=== PATIENT | male | born 1955 | race Caucasian/White ===

== ENCOUNTER → 2023-03-01 23:59 | Outpatient (BNV) | payer OTHER, SELFPAY | PROVIDERS: Visit Provider Internal Medicine Cardiovascular Disease | DX: I21.02 ST elevation (STEMI) myocardial infarction involving left anterior descending coronary artery (principal) | CPT/HCPCS: 92941; 92978; 93458; 99152 ==

== ENCOUNTER 2023-03-20 14:45 | Outpatient (AMB) | payer OTHER, SELFPAY ==
--- NOTE | 2023-03-20 14:48 | A.OFFVIS_ITS ---
Intake Vital Signs 03/20/23 14:51 Height 5 ft 10 in Weight 209 lb 10.554 oz BMI 30.1 BP 110/60 Blood Pressure Location Lt brachial Position Sitting Pulse 62 Intake Visit Reasons: fu cardiac cath Intake Note: f/up cardiac cath pt it fine Clinical Applications Specialist Required: No Accompanied by: Spouse Allergies No Known Allergies Allergy (Verified 03/20/23 14:53) Medication List - Last Reconciled 03/20/23 by Rocky Mckinnon MD aspirin 81 mg PO DAILY atorvastatin 80 mg PO BEDTIME clopidogrel 75 mg PO DAILY metoprolol succinate ER 25 mg PO DAILY sildenafil mg PO valsartan 40 mg PO DAILY HPI HPI Comments History of Present Illness Details [age] gentleman is here for follow-up. He presented to [facility] with anterior ST-elevation UT in February 2023. Was taken emergently for cardiac catheterization which revealed a 99% proximal LAD stenosis which was treated with drug-eluting stent. He did well after that. Reportedly he had ejection fraction of 30 35%. Was started on valsartan and metoprolol succinate. He is complaining of some fatigue and gets tired easily. He was not very active to start with and has not been exercising regularly since the UT. He is due to start cardiac rehabilitation in April 2023. He is taking aspirin and Plavix without any bleeding issues. Blood pressure is 110/60. On couple of occasions he had dizziness but this is not a common symptom. He said he has not been drinking much because he was advised not to drink a lot of water since his ejection fraction is low. I have advised him to drink water but stay away from salt. [facility] Social History Alcohol intake: never Patient Tobacco Use Status: Never used Tobacco Review of Systems Const Reports chills, Reports fatigue, Reports fever(s), Reports frequent falls, Reports weakness, Reports weight gain and Reports weight loss ENT Reports dizziness Card Reports chest pain, Reports leg edema, Reports lightheadedness, Reports palpitations, Reports dyspnea and Reports dyspnea on exertion Resp Reports cough, Reports dyspnea and Reports dyspnea on exertion GI Reports hematochezia Musc Reports abnormal gait, Reports muscle weakness, Reports numbness, Reports radiating pain into limb and Reports tingling Neuro Reports abnormal gait, Reports dizziness, Reports frequent falls, Reports numbness, Reports tingling and Reports weakness Endo Reports fatigue and Reports palpitations Physical Exam Vital Signs: Last Vital Signs Pulse 62 03/20/23 14:51 BP 110/60 03/20/23 14:51 BMI result Body Mass Index 30.1 GENERAL APPEARANCE: in no acute distress, pleasant. NECK: no carotid bruit, no jugular venous distention. SKIN: no suspicious lesions, warm and dry. HEART: no murmurs, regular rate and rhythm. LUNGS: clear to auscultation bilaterally. ABDOMEN: soft, nontender. EXTREMITIES: no edema. PERIPHERAL PULSES: equal. NEUROLOGIC: No gross deficits, AAO X 3 Office Procedures EKG Details: Sinus rhythm 62 beats per minute, normal axis, septal infarct, QTC 428 milliseconds. [id number], Complete Assessment & Plan Assessment & Plan (1) STEMI (ST elevation myocardial infarction): Code(s): I21.3 - ST elevation (STEMI) myocardial infarction of unspecified site (2) Ischemic cardiomyopathy: Code(s): I25.5 - Ischemic cardiomyopathy Plan Pleasant 68 gentleman who is here for follow-up. He underwent LAD PCI in February 2023 when he presented with anterior wall UT. He had ejection fraction of 30%. Clinically not in heart failure. Tolerating medications well. I have advised him to start exercising on his own and started cardiac rehabilitation in April. Same medications for now and no changes required. We will do repeat echocardiogram in 2 months to reassess the ejection fraction. Thank you for allowing me to participate in the care of your patient. Please feel free to contact me if you have any questions. Orders: Orders CA echo limited Today I25.5 - Ischemic cardiomyopathy Coding Level of Care Code Est Pt Level 4 (73804) Diagnoses STEMI (ST elevation myocardial infarction) I21.3 Ischemic cardiomyopathy I25.5 CPT Codes EKG - CPT: 19352-[id number], Complete ([id number])
[2023-03-20 14:51] VITALS: BP 110/60; PULSE 62; BMI 30.1
== END 2023-03-20 15:34 | disposition home or self-care (01) ==
PROVIDERS: Visit Provider Internal Medicine Cardiovascular Disease
DX: I21.3 ST elevation (STEMI) myocardial infarction of unspecified site (principal); I25.5 Ischemic cardiomyopathy
CPT/HCPCS: 93010; 99214

== ENCOUNTER → 2023-03-20 14:45 | Outpatient (BNVA) | payer OTHER, SELFPAY | PROVIDERS: Visit Provider Internal Medicine Cardiovascular Disease | DX: I21.3 ST elevation (STEMI) myocardial infarction of unspecified site (principal); I25.5 Ischemic cardiomyopathy; Z79.02 Long term (current) use of antithrombotics/antiplatelets; Z79.82 Long term (current) use of aspirin | CPT/HCPCS: 93005 ==

== ENCOUNTER → 2023-04-23 12:41 | Outpatient (REF) | payer MEDICARE, SELFPAY ==
--- NOTE | 2023-04-23 12:47 | CA_ITS ---
Transthoracic Echocardiogram Patient (Last, First, Middle): Aureliano Lindsey T Gender: Male Date of : 1955 Age: 68 Procedure Date: 04/23/2023 Procedure Type: Transthoracic Echocardiogram Location: OP Height: 177.8 cm Weight: 95.71 kg BSA: 2.14 m2 Heart Rate: bpm BP: 110 / 60 mmHg Pricing Associate: TO Referring MD: Rocky Mckinnon MD Filter Operator: Rocky Mckinnon MD Symptoms: I25.5 - Ischemic cardiomyopathy Study Quality: Fair/Contrast Conclusions: - Normal left ventricular size, thickness, systolic function, and wall motion. The visually estimated ejection fraction is between 55-60%. - Normal right ventricular cavity size and systolic function. Findings Procedure Information Contrast agent, definity, is being given per protocol without apparent complications. Left Ventricle Normal left ventricular size, thickness, systolic function, and wall motion. The visually estimated ejection fraction is between 55-60%. Diastolic function is indeterminate on the basis of available data. Right Ventricle Normal right ventricular cavity size and systolic function. Venous The inferior vena cava is normal in size and collapses greater than 50% with inspiration. Pericardium/Pleural There is no evidence of pericardial effusion. Prior Study Comparison No prior study available for comparison. Measurements 2D Linear Measurements IVSd: 1.09 0.6-0.9/0.6-1.0 cm LVIDd: 5.00 3.9-5.3/4.2-5.9 cm LVIDd Index: 2.34 2.4-3.2/2.2-3.1 cm/m2 LVIDs: 2.54 2.0-3.6 cm LVPWd: 0.79 0.7-1.1 cm LV Mass: 208.98 67-162/88-224 g LV Mass Index: 97.66 43-95/49-115 g/m2 LVOT Diam: 2.10 3.0+(-)1.3 cm 2D Systolic Function EF 4C: 53.20 >55% EF 2C: 49.70 >55% EF BiP: 50.90 >55% LVOT LVOT Pk Dayne: 0.88 LVOT Mn Dayne: 0.57 LVOT VTI: 0.19 LVOT Pk Grad: 3.00 LVOT Mn Grad: 2.00 LVOT Diam: 2.10 LVOT Area: 3.46 Tricuspid Valve RA Press: 8.00 Updated in Other Vendor System with Status of Final Rocky Mckinnon MD electronically signed on 04/24/2023 2:46:09 PM with status of Final
== END ==
LOC: HO.CARD 12:41
PROVIDERS: PCP Pediatrics; Visit Provider Internal Medicine Cardiovascular Disease
DX: I25.5 Ischemic cardiomyopathy (principal)
CPT/HCPCS: 93308; Q9957

== ENCOUNTER → 2023-04-23 12:47 | Outpatient (BNV) | payer SELFPAY | PROVIDERS: PCP Pediatrics; Visit Provider Internal Medicine Cardiovascular Disease | DX: I25.5 Ischemic cardiomyopathy (principal) | CPT/HCPCS: 93308 ==

== ENCOUNTER 2023-06-26 14:34 | Outpatient (AMB) | payer MEDICARE, OTHER, SELFPAY ==
[2023-06-26 14:55] VITALS: BP 120/60; PULSE 61; BMI 30.5
--- NOTE | 2023-06-26 14:55 | A.OFFVIS_ITS ---
Intake Vital Signs 06/26/23 14:55 Height 5 ft 10 in Weight 212 lb 8.41 oz BMI 30.5 BP 120/60 Blood Pressure Location Lt brachial Position Sitting Pulse 61 Pulse Source Pulse Oximeter Intake Visit Reasons: 3 mth s/p echo Intake Note: pt states that he its doing fine. 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 He presented to [facility] with anterior ST-elevation MO in February 2023. Was taken emergently for cardiac catheterization which revealed a 99% proximal LAD stenosis which was treated with drug-eluting stent. He did well after that. Reportedly he had ejection fraction of 30 35%. Was started on valsartan and metoprolol succinate. He is complaining of some fatigue and gets tired easily. He was not very active to start with and has not been exercising regularly since the MO. He is due to start cardiac rehabilitation in April 2023. He is taking aspirin and Plavix without any bleeding issues. Blood pressure is 110/60. On couple of occasions he had dizziness but this is not a common symptom. He said he has not been drinking much because he was advised not to drink a lot of water since his ejection fraction is low. I have advised him to drink water but stay away from salt. 06/26/2023: He returns for follow-up. Nathaly davenport has been doing well. No chest pain or shortness of breath. Blood pressure is well controlled. He is tolerating dual antiplatelet therapy. Is asking whether he can take creatine supplements. To my knowledge there is no absolute contraindication to that but I will search about it. His repeat echocardiography has shown normal EF and his cardiomyopathy has improved. [facility] Social History Alcohol intake: never Patient Tobacco Use Status: Never used Tobacco Review of Systems Const Denies chills, Denies fatigue, Denies fever(s), Denies frequent falls, Denies weakness, Denies weight gain and Denies weight loss ENT Denies dizziness Card Denies chest pain, Denies leg edema, Denies lightheadedness, Denies palpitations, Denies dyspnea and Denies dyspnea on exertion Resp Denies cough, Denies dyspnea and Denies dyspnea on exertion GI Denies hematochezia Musc Denies abnormal gait, Denies muscle weakness, Denies numbness, Denies radiating pain into limb and Denies tingling Neuro Denies abnormal gait, Denies dizziness, Denies frequent falls, Denies numbness, Denies tingling and Denies weakness Endo Denies fatigue and Denies palpitations Physical Exam Vital Signs: Last Vital Signs Pulse 61 06/26/23 14:55 BP 120/60 06/26/23 14:55 BMI result Body Mass Index 30.5 GENERAL APPEARANCE: in no acute distress, pleasant. NECK: no carotid bruit, no jugular venous distention. SKIN: no suspicious lesions, warm and dry. HEART: no murmurs, regular rate and rhythm. LUNGS: clear to auscultation bilaterally. ABDOMEN: soft, nontender. EXTREMITIES: no edema. PERIPHERAL PULSES: equal. NEUROLOGIC: No gross deficits, AAO X 3 Assessment & Plan Assessment & Plan (1) Stable angina: Code(s): I20.89 - Other forms of angina pectoris Plan Pleasant 68-year-old gentleman who is here for follow-up. He has background history of anterior wall MO in February 2023 when he underwent primary PCI to LAD. His EF was 30% at that time. Subsequent to that he was seen in the office and was stable. On medications repeat echocardiography has shown normal ejection fraction. Clinically stable. Continue aspirin Plavix till February 2024. After that I would favor continuing Plavix monotherapy and will stop the aspirin but we will have a discussion about it. He will see us back in 4 months. Thank you for allowing me to participate in the care of your patient. Please feel free to contact me if you have any questions. Coding Level of Care Code Est Pt Level 4 (86816) Diagnoses Stable angina I20.89
== END 2023-06-26 15:20 | disposition home or self-care (01) ==
PROVIDERS: Visit Provider Internal Medicine Cardiovascular Disease
DX: I20.89 Other forms of angina pectoris (principal)
CPT/HCPCS: 99214

== ENCOUNTER → 2023-06-26 14:34 | Outpatient (BNVA) | payer MEDICARE, OTHER, SELFPAY | PROVIDERS: Visit Provider Internal Medicine Cardiovascular Disease | DX: I20.89 Other forms of angina pectoris (principal) | CPT/HCPCS: 99212 ==

== ENCOUNTER 2023-11-13 12:50 | Outpatient (AMB) | payer MEDICARE, SELFPAY ==
--- NOTE | 2023-11-13 12:52 | A.OFFVIS_ITS ---
Vital Signs 11/13/23 12:53 Height 5 ft 10 in Weight 219 lb 9.286 oz BMI 31.5 BP 130/64 Blood Pressure Location Lt brachial Position Sitting Pulse 83 Pulse Source Pulse Oximeter Intake Visit Reasons: 4 mth f/up Intake Note: 4 mth f/up pt Gold Assayer Required: No Accompanied by: Self / Same As Patient Allergies No Known Allergies Allergy (Verified 03/20/23 14:53) Medication List - Last Reconciled 11/13/23 by Rocky Mckinnon MD aspirin 81 mg PO DAILY atorvastatin 80 mg PO BEDTIME clopidogrel 75 mg PO DAILY metoprolol succinate ER 25 mg PO DAILY sildenafil mg PO valsartan 40 mg PO DAILY HPI Comments Details: 68-shey-old gentleman is here for follow-up. He presented to [facility] with anterior ST-elevation CT in February 2023. Was taken emergently for cardiac catheterization which revealed a 99% proximal LAD stenosis which was treated with drug-eluting stent. He did well after that. Reportedly he had ejection fraction of 30 35%. Was started on valsartan and metoprolol succinate. He is complaining of some fatigue and gets tired easily. He was not very activ e to start with and has not been exercising regularly since the CT. He is due to start cardiac rehabilitation in April 2023. He is taking aspirin and Plavix without any bleeding issues. Blood pressure is 110/60. On couple of occasions he had dizziness but this is not a common symptom. He said he has not been drinking much because he was advised not to drink a lot of water since his ejection fraction is low. I have advised him to drink water but stay away from salt. 06/26/2023: He returns for follow-up. He has been doing well. No chest pain or shortness of breath. Blood pressure is well controlled. He is tolerating dual antiplatelet therapy. Is asking whether he can take creatine supplements. To my knowledge there is no absolute contraindication to that but I will search about it. His repeat echocardiography has shown normal EF and his cardiomyopathy has improved. 11/13/2023: Aureliano is here for follow-up. No chest pain or shortness of breath. He is saying occasionally he gets very jittery and tremulous. Today he has been tremulous since he ate breakfast. He said he was holding the spoon and it was shaking in his hand. He has some stress because he is trying to sell some tool boxes because his garage is full of tools. Taking medications regularly otherwise. Blood pressure is well controlled. [facility] Social History (Reviewed 11/13/23 @ 12:55 by Vita Holland [facility]) Alcohol intake: never Patient Tobacco Use Status: Never used Tobacco Review of Systems Const Denies chills, Denies fatigue, Denies fever(s), Denies frequent falls, Denies weakness, Denies weight gain and Denies weight loss ENT Denies dizziness Card Denies chest pain, Denies leg edema, Denies lightheadedness, Denies palpitations, Denies dyspnea and Denies dyspnea on exertion Resp Denies cough, Denies dyspnea and Denies dyspnea on exertion GI Denies hematochezia Musc Denies abnormal gait, Denies muscle weakness, Denies numbness, Denies radiating pain into limb and Denies tingling Neuro Denies abnormal gait, Denies dizziness, Denies frequent falls, Denies numbness, Denies tingling and Denies weakness Endo Denies fatigue and Denies palpitations Physical Exam Vital Signs: Last Vital Signs Pulse 83 11/13/23 12:53 BP 130/64 11/13/23 12:53 BMI result Body Mass Index 31.5 GENERAL APPEARANCE: in no acute distress, pleasant. NECK: no carotid bruit, no jugular venous distention. SKIN: no suspicious lesions, warm and dry. HEART: no murmurs, regular rate and rhythm. LUNGS: clear to auscultation bilaterally. ABDOMEN: soft, nontender. EXTREMITIES: no edema. Tremors in hands. PERIPHERAL PULSES: equal. NEUROLOGIC: No gross deficits, AAO X 3 Assessment & Plan Assessment & Plan (1) Stable angina: Code(s): I20.89 - Other forms of angina pectoris Category: Medical Plan Pleasant 68 year gentleman who is here for follow-up. He has known history of coronary disease with proximal LAD PCI in the past with intravascular ultrasound guidance. His ejection fraction was 30% but subsequently repeat echocardiography has shown normal ejection fraction. He is taking aspirin and Plavix and is tolerating them well. No bleeding concerns. Blood pressure well controlled. He has tremors in his hands. I have advised him to check TSH. Unclear etiology currently to me. Thank you for allowing me to participate in the care of your patient. Please fe el free to contact me if you have any questions. Orders: Orders TSH reflex Free T4 Today I20.89 - Other forms of angina pectoris Coding Level of Care Code Est Pt Level 4 (29551) Diagnoses Stable angina I20.89
[2023-11-13 12:53] VITALS: BP 130/64; PULSE 83; BMI 31.5
== END 2023-11-13 13:26 | disposition home or self-care (01) ==
PROVIDERS: PCP Pediatrics; Visit Provider Internal Medicine Cardiovascular Disease
DX: I20.89 Other forms of angina pectoris (principal)
CPT/HCPCS: 99214

== ENCOUNTER 2023-11-13 12:50 | Outpatient (REF) | payer MEDICARE, SELFPAY ==
[2023-11-13 14:41] LABS: TSH reflex Free T4 1.96 uIU/mL (0.32-4.0)
== END 2023-11-13 12:51 | disposition home or self-care (01) ==
LOC: HO.LAB 12:50
PROVIDERS: PCP Pediatrics; Visit Provider Internal Medicine Cardiovascular Disease
DX: I20.89 Other forms of angina pectoris (principal); Z79.899 Other long term (current) drug therapy
CPT/HCPCS: 36415; 84443; 99212

== ENCOUNTER 2024-08-17 14:21 | Outpatient (AMB) | payer MEDICARE, SELFPAY ==
--- OUTSIDE RECORDS SUMMARY | 2024-08-17 14:34 | XMS_ITS | Clinical Summary ---
Author Organization [facility] Address [address] [place] [address] Care Team Providers Care Cloth Winding Supervisor Name Role Phone [place]-Sary Ross MD Primary Care Provider Allergies No known active allergies Medications Medication Sig Dispensed Refills Start Date End Date Status naproxen (NAPROXEN DR) 500 MG EC tablet Take 500 mg by mouth 2 (two) times a day with meals. 0 Active Active Problems Problem Noted Date Diagnosed Date Acute meniscal tear of knee, left, initial encou nter 01/15/2017 Chronic pain of left knee 01/09/2017 Family History Medical History Relation Name Comments Hypertension Father Diabetes Mother Relation Name Status Comments Father Mother Social History Tobacco Use Types Packs/Day Years Used Date Smoking Tobacco: Never Alcohol Use Standard Drinks/Week Comments Yes 0 (1 standard drink = 0.6 oz pur e alcohol) Sex and Gender Information Value Date Recorded Sex Assigned at Not on file Gender Identity Not on file Sexual Orientation Not on file Last Filed Vital Signs Vital Sign Reading Time Taken Comments Blood Pressure - - Pulse - - Temperature - - Respiratory Rate - - Oxygen Saturation - - Inhaled Oxygen Concentration - - Weight 97.1 kg (214 lb) 01/09/2017 9:58 AM EDT Height 177.8 cm (5' 10 ) 01/09/2017 9:58 AM EDT Body Mass Index 30.71 01/09/2017 9:58 AM EDT Plan of Treatment Health Maintenance Due Date Last Done Comments Hepatitis C Screening 1955 COVID-19 Vaccine (#1) 1955 Depression Screening 1968 Preventative Health Evaluation 01/09/1974 DTap / Tdap / Td (1 - Tdap) 01/09/1975 Colon Cancer Screening (Colonoscopy) 01/09/2001 Shingrix-Zoster Vaccine (1 of 2) 01/09/2006 Fall Risk Assessment 01/09/2021 Pneumococcal Vaccine (1 of 1 - PCV) 01/09/2021 Influenza Vaccine (#1) 2023 RSV Adult > 60+ Yrs or Pregn ant (1 - 1-dose 75+ series) 01/09/2031 Hepatitis B Vaccines Aged Out No long er eligible based on patient's age to complete this topic RSV Ped < 20 months Aged Out No longe r eligible based on patient's age to complete this topic Care Teams Cloth Winding Supervisor Relationship Specialty Start Date End Date [place]-Sary Ross MD PCP - General Internal Medicine 12/20/16
--- OUTSIDE RECORDS SUMMARY | 2024-08-17 14:34 | XMS_ITS | Encounter Summary ---
Author Organization [facility] Address [address] [place] [address] Care Team Providers Care Ctrs Name Role Phone Heriberto Dale MD Primary Care Provider [phone] Reason for Visit * Consultation (Routine) - Authorized Specialty Diagnoses / Procedures Referred By Glory t Referred To Contact Physical Therapy Diagnoses Chronic right shoulder pain Rosa Isela Tijerina NP 230 [facility] [place] Phone: tel: fax: Referral ID Status Reason Start Date Expiration Date Visits Requested Visits Authorized [id number] Authorized Specialty Services Required 07/09/2024 07/09/2025 20 20 Encounter Details Date Type Department Care Team (Late st Contact Info) Description 08/17/2024 7:30 AM EDT Treatment [address] [phone] Aby Cifuentes PT Chronic right shoulder pain (Primary Dx) Social History Tobacco Use Types Packs/Day Years Used Date Smoking Tobacco: Former Cigarettes Q uit: 04/08/1976 Smokeless Tobacco: Never Alcohol Use Standard Drinks/Week Comments Not Currently 0 (1 standard drink = 0.6 oz pur e alcohol) Housing Instability Answer Date Recorde d Are you worried that in the next 2 months you may not have stable housing? No 07/06/2024 Food Access & Nutrition Answer Date Rec orded Do you have access to a vari ety of food including fruits and vegetables? Yes 07/06/2024 Access to Healthcare Answer Date Record ed Within the last 3 months, meghna ferrara many times did you visit the emergency department for your medical care? 0 07/06/2024 Health Literacy Answer Date Recorded How often do you need to hav e someone help you when you read instructions, pamphlets, or other written material from your doctor or pharmacy? Never 07/06/2024 Caregiver: How often do you need to have someone help you when you read instructions, pamphlets, or other written material from your doctor or pharmacy? Not on file 07/06/2024 Financial Risk Answer Date Recorded How hard is it for you to pa y for the very basics like food, housing, medical care, and air conditioning / heating? Not very hard 07/06/2024 Transportation Answer Date Recorded Has the lack of transportati on kept you from meetings, work, or from getting things needed for daily living? No Has the lack of transportati on kept you from medical appointments or from getting medications? No 07/06/2024 Food Risk Answer Date Recorded Within the past 12 months we worried whether our food would run out before we got money to buy more. Never true 07/06/2024 Within the past 12 months th e food we bought just didn't last and we didn't have money to get more. Never true 07/06/2024 Dependent Care Answer Date Recorded Do you need help finding or paying for care for your loved ones. For example, child care provider or elderly care for an older adult? No 07/06/2024 Education Answer Date Recorded Do you think completing more education or training, like finishing a GED, going to college, or learning a trade, would be helpful for you? No 07/06/2024 Employment and Income Answer Date Recor ded During the last four weeks, have you been actively looking for work? No 07/06/2024 Living Situation Answer Date Recorded What is your living situation? 0 07/06/2024 Sex and Gender Information Value Date Recorded Sex Assigned at Not on file Legal Sex Male 5:28 AM EST Gender Identity Not on file Sexual Orientation Not on file documented as of this encounter Progress Notes * Aby Cifuentes, PT - 08/17/2024 7:30 AM EDT [facility] - Outpatient PHYSICAL THERAPY DAILY TREATMENT NOTE - OP Date: 08/17/2024 Visit Number: 4 Patient Name: Aureliano Lindsey : 1955 Age: 69 y.o. Gender: male Diagnosis: ICD-10-CM ICD-9-CM 1. Chronic right shoulder pain M25.511 719.41 G89.29 338.29 Date of Onset/Surgery: 02/05/2024 Referring Provider: Rosa Isela Tijerina NP Insurance: Payor: BLUE CROSS - [place] MEDICARE ADVANTAGE / Plan: BCBS [place] MED[place] / Product Type: *No Product type* / Patient Identified by: Aby Cifuentes PT Language: Speaks and understands Icelandic as preferred language with no neurology specialist required Medications: Current Outpatient Medications on File Prior to Visit Medication Sig Dispense Refill aspirin 81 mg EC tablet Take 1 tablet (81 mg total) by mouth 1 (one) time each day. 30 each 2 atorvastatin (LIPITOR) 80 mg tablet Take 1 tablet (80 mg total) by mouth 1 (one) time each day. at bedtime. 30 each 2 clopidogreL (PLAVIX) 75 mg tablet Take 1 tablet (75 mg total) by mouth 1 (one) time each day. 30 each 2 metoprolol succinate (TOPROL-XL) 25 mg 24 hr tablet Take 1 tablet (25 mg total) by mouth 1 (one) time each day. Do not crush or chew. 30 each 2 sildenafiL (VIAGRA) 50 mg tablet TAKE 1/2 (HALF) TABLET BY MOUTH EVERY DAY NEEDED FOR ERECTILE DYSFUNCTION 4 tablet 2 traZODone (DESYREL) 50 mg tablet Take 1 tablet (50 mg total) by mouth at bedtime. 30 each 2 valsartan (DIOVAN) 40 mg tablet Take 1 tablet (40 mg total) by mouth 1 (one) time each day. 90 tablet 0 No current facility-administered medications on file prior to visit. Allergies: has No Known Allergies. Precautions: none Fall risk: No SUBJECTIVE Subjective Report: The patient reports he put together a Chart Reviewed: Yes Pain: no current pain in shoulder. TREATMENT INTERVENTION: Therapeutic exercise: UBE 3/3 = 6 min lv 1 Shoulder flexion pulleys x 4 min Rows guan tubing x 30 Manual Therapy: STM to right upper trap/pec/biceps Posterior GH joint mobilization Gr IV R ASSESSMENT/Response to Treatment Good The patient tolerated treatment well with minimal complaints of discomfort in his shoulder. Hewas instructed to continue with stretches at home and UE strengthening exercises. Patient is continuing to make good progress towards physical therapy goals Patient Education: Education provided: HEP-triceps stretch, doorway stretch, posterior capsule stretch, 3 way shoulderpulls blue band Education Provided To: Patient utilizing Explanation and Demonstration mode(s) of education Response to Education: Applied Knowledge, Verbal Understanding, and Demonstrated Skills PLAN POC Development/Review: No Change in the Plan of Care; Participants: Patient Interventions Time Entry: Therapeutic procedures: Manual Therapy Time Entry: 10 Therapeutic Exercise Time Entry: 15 Total Treatment Time: 25 Documentation completed by Aby Cifuentes PT documented in this encounter Plan of Treatment Upcoming Encounters Date Type Department Care Team (Latest Contact Info) Description 08/19/2024 11:30 AM EDT Treatment [address] [phone] Mark Nieves, W[employer]DING MAKEUP ARTIST 08/26/2024 8:30 AM EDT Treatment [address] [phone] Rolando Faith, WEDDING MAKEUP ARTIST 08/28/2024 1:00 PM EDT Treatment [address] [phone] Rolando Faith, WEDDING MAKEUP ARTIST 09/01/2024 1:30 PM EDT Hospital Encounter [facility] Endoscopy [address] [place] [phone] Dean Frank MD [address] [address] 09/07/2024 11:00 AM EDT Treatment [address] [phone] Aby Cifuentes PT 01/11/2025 10:30 AM EDT Office Visit Adult Medicine - [place] [address] [place] [address] Heriberto Dale MD [address] [place] [address] documented as of this encounter Goals Goal Patient Goal Type Associated Problems Recent Progress Patient-Stated? Author LTG - 8 visits General No Aby Cifuentes PT Note: Patient reports subjective decrease in R shoulder pain Patient is able to resume throwing motion Patient is able to achieve 90 degrees of R shoulder ER Patient is able to achieve 145 degrees of R shoulder abduction Slight pec and biceps flexibility restriction bilaterally Patient is independent and compliant with HEP documented as of this encounter Visit Diagnoses Diagnosis Chronic right shoulder pain- Primary Pain in joint, shoulder region documented in this encounter Additional Health Concerns Assessment Noted Time PHQ-9 Depression Total Score: 0 07/07/19 25 8:37 AM EDT documented as of this encounter Care Teams Ctrs Relationship Specialty Start Date End Date Heriberto Dale MD [address] [place] [address] PCP - General Internal Medicine 11/25/20 documented as of this encounter
--- OUTSIDE RECORDS SUMMARY | 2024-08-17 14:34 | XMS_ITS | Clinical Summary ---
Author Organization [facility] 230 [facility] lding Address [address] [facility] [place] [address] Phone Care Team Providers Care Cloth Finishing Range Tender Name Role Phone Heriberto Dale MD Primary Care Provider [phone] Allergies No known active allergies Medications sildenafiL (VIAGRA) 50 mg tablet TAKE 1/2 (HALF) TABLET BY MOUTH EVERY DAY NEEDED FOR ERECTILE DYSFUNCTION 4 tablet 2 5 Active aspirin 81 mg EC tablet Take 1 tablet (81 mg total) by mouth 1 (one) time each day. 30 each 2 5 10/08/19 25 Active atorvastatin (LIPITOR) 80 mg tablet Take 1 tablet (80 mg total) by mouth 1 (one) time each day. at bedtime. 30 each 2 5 10/08/19 25 Active clopidogreL (PLAVIX) 75 mg tablet Take 1 tablet (75 mg total) by mouth 1 (one) time each day. 30 each 2 5 10/08/19 25 Active metoprolol succinate (TOPROL-XL) 25 mg 24 hr tablet Take 1 tablet (25 mg total) by mouth 1 (one) time each day. Do not crush or chew. 30 each 2 5 10/08/19 25 Active traZODone (DESYREL) 50 mg tablet Take 1 tablet (50 mg total) by mouth at bedtime. 30 each 2 5 10/08/19 25 Active valsartan (DIOVAN) 40 mg tablet Take 1 tablet (40 mg total) by mouth 1 (one) time each day. 90 tablet 5 10/08/19 25 Active bisacodyL (DULCOLAX) 5 mg EC tablet Take 2 tablets by mouth right before beginning bowel prep. See instructions provided by the office 2 tablet 5 Active polyethylene glycol (Golytely) 236-22.74-6.74 -5.86 gram solution Take 4L by mouth once for one dose. May substitue any PEG. Starting at 6PM the night before your procedure drink 1 8oz glasses at your own pace until you complete half of the gallon. Finish 2nd half of the gallon 5 hours before your procedure. 4000 mL 5 Active Active Problems Problem Noted Date Diagnosed Date Chronic right shoulder pain 07/09/2024 Colon cancer screening 06/17/2024 STEMI (ST elevation myocardi al infarction) ([facility] V24, [facility] V28) 04/16/2023 Overview (03/18/2024): 02/28. DANA LAD. EF 30-40% Overweight (BMI 25.0-29.9) 11/28/2021 Hypercholesteremia 05/05/2020 Overview (03/18/2024): 08/26 - 10.6% Diastasis recti 01/19/2020 Fatty liver 01/02/2014 Urolithiasis 12/26/2012 Overview (03/18/2024): Calcium oxalate, ureteral stone, Dr Geronimo Erectile dysfunction 05/08/2012 Encounters Date Type Department Care Team Description 08/17/2024 7:30 AM EDT Treatment [facility] [address] [phone] Aby Cifuentes, PT Chronic right shoulder pain (Primary Dx) 08/13/2024 7:00 AM EDT Treatment [facility] [address] [phone] Mark Nieves, FARMWORKER GENERAL Chronic right shoulder pain (Primary Dx) 08/11/2024 5:00 PM EDT Treatment [address] [place] [phone] Aby Cifuentes, PT Chronic right shoulder pain (Primary Dx) 08/05/2024 9:00 AM EDT Evaluation [facility] 175 [facility] [address] [place] [phone] Aby Cifuentes, PT Chronic right shoulder pain 08/03/2024 Telephone Gastroenterology - [address] 175 [facility] [address] [place] [phone] Moraima Gibson LPN Anticoagulation (Colonoscopy on 09/01/[address] Frank) 07/13/2024 Telephone Adult Medicine [facility] [address] [place] [phone] [place], [place] 07/09/2024 1:30 PM EDT - 07/09/2024 11:59 PM EDT Hospital Encounter Xray - [place] [address] [place] [phone] Chronic right shoulder pain Discharge Disposition: Home or Self Care 07/09/2024 1:00 PM EDT Office Visit Adult Medicine [facility] [address] [place] [phone] Rosa Isela Tijerina, ROSY Hypercholesteremia (Primary Dx); Chronic right shoulder pain 06/12/2024 Telephone Adult Medicine [facility] [address] [place] [phone] Heriberto Dale MD Referral from Last 3 Months Immunizations Name Administration Dates Next Due Influenza Quadravalent, MDCK , 0.5ml, preservative free (Flucelvax) 6mo and older 01/19/2020 Influenza trivalent, 0.5mL ( Fluad) 65yo and older 01/09/2024,2023 Moderna SARS-CoV-2 COVID-19, mRNA, LNP-S, preservative free 05/11/2021,08/02/2020,06/30/2020 Pneumococcal conjugate 20 va lent (Prevnar 20, PCV 20) 2mo and older 01/09/2024 Pneumococcal polysaccharide 23 valent (Pneumovax 23) 2yo and older 11/28/2021 Td Tetanus diptheria (Tdvax) 7yo and older 07/26 Tdap Tetanus diptheria acell ular pertussis (Boostrix; Adacel) 7yo and older 05/08/2012 Surgical History Surgery Date Site/Laterality Comments HERNIA REPAIR 11/05/2011 PROCEDURE: REPAIR INGUINAL HERNIA; COMMENT: Dr Champ Rao COLONOSCOPY 2012 PROCEDURE: [facility] COLONOSCOPY FLX DX W/COLLJ SPEC WHEN PFRMD; COMMENT: normal KNEE ARTHROSCOPY W/ DEBRIDEMENT 10/1999 PROCEDURE: [facility] ARTHRS KNEE DEBRIDEMENT/SHAVING ARTCLR CRTLG OTHER SURGICAL HISTORY 10/2012 PROCEDURE: [facility] INSTLJ THER AGENT RENAL PELVIS&/URETER VIA TUB; COMMENT: right ureteral nephrostomy, Dr Perdomo Medical History Medical History Date Comments Epididymal cyst 05/2003 DX:Epididymal cy st; COMMENT: [facility] Fatty liver 01/02/2014 DX:Fatty liver Hyperlipidemia 05/05/2020 DX:Hyperlipidemi a Covid 05/09/2023 DX:COVID Family History Medical History Relation Name Comments No Known Problems Brother Hypertension Father Glaucoma, arthr itis Parkinson's Disease Father Heart attack Maternal Grandfather du ring CABG Hyperlipidemia Mother Other: Schizophrenia Mother Endomet rial cancer Other cancer Paternal Grandmother stomach cancer Diabetes Sister No Known Problems Son Relation Name Status Comments Brother Alive Father Maternal Grandfather Maternal Grandmother Mother Paternal Grandfather Paternal Grandmother Sister Alive Son Alive Social History Tobacco Use Types Packs/Day Years Used Date Smoking Tobacco: Former Cigarettes Q uit: 04/08/1976 Smokeless Tobacco: Never Tobacco Cessation:Counseling Given: Not Answered Alcohol Use Standard Drinks/Week Comments Not Currently [...] Record ed Within the last 3 months, ho w many times did you visit the emergency [...] care for your loved ones. For example, director child development center or elderly care for an older adult? [...] on file Sexual Orientation Not on file Obstetrics History Last Filed Vital Signs Vital Sign Reading Time Taken Comments Blood Pressure 117/65 07/09/2024 1:08 PM EDT Pulse 67 07/09/2024 1:08 PM EDT Temperature 36.3 ??C (97.3 ??F) 07/09/2024 1:08 PM ED T Respiratory Rate - - Oxygen Saturation - - Inhaled Oxygen Concentration - - Weight 103 kg (228 lb) 07/09/2024 1:08 PM EDT Height 177.8 cm (5' 10 ) 07/09/2024 1:08 PM EDT Body Mass Index 32.71 07/09/2024 1:08 PM EDT Plan of Treatment Upcoming Encounters Date Type Department Care Team (Latest Contact Info) Description 08/19/2024 11:30 AM EDT Treatment [facility] [address] [phone] Mark Nieves, FARMWORKER GENERAL 08/26/2024 8:30 AM EDT Treatment [address] [phone] Rolando Fatih, FARMWORKER GENERAL 08/28/2024 1:00 PM EDT Treatment [address] [phone] Rolando Faith, FARMWORKER GENERAL 09/01/2024 1:30 PM EDT Hospital Encounter [facility] Endoscopy [address] [place] [phone] Dean Frank MD [address] [address] 09/07/2024 11:00 AM EDT Treatment [address] [phone] Aby Cifuentes, PT 01/11/2025 10:30 AM EDT Office Visit Adult Medicine [facility] [address] [place] [address] Heriberto Dale MD [address] [place] [address] Health Maintenance Due Date Last Done Comments Zoster Vaccines (1 of 2) 01/09/2006 Abdominal Aortic Aneurysm (AAA) Screen 03/17/2022 Colorectal Cancer Screening: Colonoscopy 09/11/2022 09/11/2012 COVID-19 Vaccine (2023- 5 season) 2023 05/11/2021, 08/02/2020, 06/30/2020 Medicare Annual Wellness Visit 01/08/2025 01/09/2024 Depression Screening 07/06/2025 07/06/2024, 01/09/2024 Social Influencers of Health Screening 07/06/2025 07/06/2024 Falls Risk Assessment 07/09/2025 07/09/2024 , 01/09/2024 Cholesterol Screening (Lipid Panel) 01/08/2029 01/09/2024, 01/09/2024 RSV Immunization Adult Patients (1 - 1-dose 75+ series) 01/09/2031 DTaP,Tdap,and Td Vaccines (3 - Td or Tdap) 07/26/2032 07/26/2022, 05/08/2012 Hepatitis C Screening Completed 09/29/2018 Influenza Vaccine Completed 01/09/2024, 2023, 01/19/2020 Pneumococcal Vaccine: 50+ Years Completed 01/09/2024, 11/28/2021 HIB Vaccines Aged Out No longer eligi ble based on patient's age to complete this topic HPV Vaccines Aged Out No longer eligi ble based on patient's age to complete this topic Hepatitis A Vaccines Aged Out No long er eligible based on patient's age to complete this topic Hepatitis B Vaccines Aged Out No long er eligible based on patient's age to complete this topic IPV Vaccines Aged Out No longer eligi ble based on patient's age to complete this topic MMR Vaccines Aged Out No longer eligi ble based on patient's age to complete this topic Meningococcal ACWY Vaccine Aged Out N o longer eligible based on patient's age to complete this topic Meningococcal B Vaccine Aged Out No l onger eligible based on patient's age to complete this topic RSV Immunization Patients Under 20 months Aged Out No longer eligible b ased on patient's age to complete this topic Varicella Vaccines Aged Out No longer eligible based on patient's age to complete this topic Goals Goal Patient Goal Type Associated Problems [...] Patient is independent and compliant with HEP Procedures Procedure Name Priority Date/Time Associated Diagnosis Comments XR SHOULDER 2+ VIEWS RIGHT Routine 07/09/2024 1:49 PM EDT Chronic right shoulder pain DEPRESSION SCREENING Routine 01/09/2024 FALLS RISK ASSESSMENT Routine 01/09/2024 LIPID PANEL Routine 01/09/2024 HEPATITIS C SCREENING Routine 09/29/2018 from Last 3 Months or Most Recently Relevant to Health Maintenance Results * XR Shoulder 2+ Views Right (07/09/2024 1:49 PM EDT) Anatomical Region Laterality Modality Upper Extremities, Shoulder Right Radi ographic Imaging 07/09/2024 5:28 PM EDT Impressions 07/09/2024 5:32 PM EDT No acute fracture or dislocation of the right shoulder. Calcific bursitis. -------- FINAL REPORT -------- Dictated By: Alex Bautista Dictated Date: 07/09/2024 17:28 ET Assigned Physician: Alex Bautista Reviewed and Electronically Signed By: Alex Bautista Signed Date: 07/09/2024 17:32 ET Workstation ID: [id number] Transcribed By: Self Edit Transcribed Date: 07/09/2024 17:28 ET Narrative 07/09/2024 5:32 PM EDT HISTORY: shoulder pain Chronic right shoulder pain TECHNIQUE: 4 views of the right shoulder COMPARISON: None FINDINGS: No acute fracture or dislocation is seen. There is no evidence of malalignment. ??There is mild glenohumeral joint space narrowing. ??Severe narrowing of the acromioclavicular joint with large osteophytes at the superior distal clavicle and acromion. ??Rounded calcific density adjacent to the humeral head. Procedure Note Alex Bautista MD - 07/09/2024 HISTORY: shoulder pain Chronic right shoulder pain TECHNIQUE: 4 views of the right shoulder COMPARISON: None FINDINGS: No acute fracture or dislocation is seen. There is no evidence ofmalalignment. There is mild glenohumeral joint space narrowing. Severenarrowing of the acromioclavicular joint with large osteophytes at thesuperior distal clavicle and acromion. Rounded calcific density adjacentto the humeral head. IMPRESSION: No acute fracture or dislocation of the right shoulder. Calcific bursitis. -------- FINAL REPORT -------- Dictated By: Alex Bautista Dictated Date: 07/09/2024 17:28 ET Assigned Physician: Alex Bautista Reviewed and Electronically Signed By: Alex Bautista Signed Date: 07/09/2024 17:32 ET Workstation ID: [id number] Transcribed By: Self Edit Transcribed Date: 07/09/2024 17:28 ET Result [facility] Rosa Isela Tijerina YARDER BOSS IMG XR PROCEDURES Final Result * Falls Risk Assessment (01/09/2024) [facility] Falls Risk Assessment Abstracted Result [facility] Provider HEALTH MAINTENANCE Final Result * Depression Screening (01/09/2024) [facility] Depression Screening Abstracted Result [facility] Provider HEALTH MAINTENANCE Final Result * (ABNORMAL) Lipid panel (01/09/2024) [facility] LDL/HDL Ratio 3 0 - 4 Triglycerides 181(A) 0 - 150 mg/dL Cholesterol 127 0 - 200 mg/dL HDL 44 >=40 mg/dL LDL Cholesterol 47 0 - 100 mg/dL Blood Venous blood specimen / Unknown Result [facility] Provider LAB BLOOD ORDERABLES Indira l Result * Hepatitis C Screening (09/29/2018) [facility] Hepatitis C Screening Abstracted Result [facility] Provider HEALTH MAINTENANCE Final Result from Last 3 Months or Most Recently Relevant to Health Maintenance Insurance BLUE CROSS - [place]ANT[place]ICAID - [place] Care Teams Cloth Finishing Range Tender Relationship Specialty Start Date End Date Heriberto Dale MD [address] [place] [address] [facility] [address] PCP - General Internal Medicine 11/25/20
--- OUTSIDE RECORDS SUMMARY | 2024-08-17 14:34 | XMS_ITS | Encounter Summary ---
Author Organization [facility] Address [address] [place] [address] Care Team Providers Care Applications Coordinator Name Role Phone Heriberto Dale MD Primary Care Provider [phone] Reason for Visit * Consultation (Routine) - Authorized Specialty Diagnoses / Procedures Referred By Glory t Referred To Contact Physical Therapy Diagnoses Chronic right shoulder pain Rosa Isela Tijerina NP [address] [facility] Phone: tel: fax: Referral ID Status Reason Start Date Expiration Date Visits Requested Visits Authorized [id number] Authorized Specialty Services Required 07/09/2024 07/09/2025 20 20 Encounter Details Date Type Department Care Team (Late st Contact Info) Description 08/13/2024 7:00 AM EDT Treatment [address] [address] Mark Nieves, SPEAKING UNIT ASSEMBLER Chronic right shoulder pain (Primary Dx) Social [...] for your loved ones. For example, director maternal child or elderly care for an older adult? [...] as of this encounter Progress Notes * Mark Nieves, SPEAKING UNIT ASSEMBLER - 08/13/2024 7:00 AM EDT [facility] - Outpatient PHYSICAL THERAPY DAILY TREATMENT NOTE - OP Date: 08/13/2024 Visit Number: 3 Patient Name: Aureliano Lindsey : 1955 Age: 69 y.o. Gender: male Diagnosis: ICD-10-CM ICD-9-CM 1. Chronic right shoulder pain M25.511 719.41 G89.29 338.29 Date of Onset/Surgery: 02/05/2024 Referring Provider: No ref. provider found Insurance: Payor: [facility] MEDIC[facility] ADVANTAGE / Plan: [facility] MEDIC[facility]VANTAGE / Product Type: *No Product type* / Patient Identified by: Mark Nieves PTA Language: Speaks and understands Yi as preferred language with no regional climate change analyst required Medications: Current Outpatient Medications on File [...] No SUBJECTIVE Subjective Report: The patient reports shoulder is feeling better Chart Reviewed: Yes Pain: no current pain in shoulder. TREATMENT INTERVENTION: Therapeutic exercise: UBE 06/08 = 6 min lv 4 Wall slides shoulder flexion with scap repositioning x 10 Doorway stretch 3 x 30 seconds Rows quantum 35# x 20 Shoulder ext 35# x [address] shoulder blue theraband x20 each direction Doorway stretch 3 x 30 seconds Manual Therapy: Posterior GH joint mobilization Gr IV L ASSESSMENT/Response to Treatment Good sore with inferior gliding Patient Education: Education provided: HEP-triceps stretch, doorway stretch, posterior capsule stretch, 3 way shoulderpulls blue band Education Provided To: Patient utilizing Explanation and Demonstration mode(s) of education Response to Education: Applied Knowledge, Verbal Understanding, and Demonstrated Skills PLAN POC Development/Review: No Change in the Plan of Care; Participants: Patient Interventions Time Entry: Therapeutic procedures: Manual Therapy Time Entry: 8 Therapeutic Exercise Time Entry: 22 Total Treatment Time: 30 Documentation completed by Mark Nieves PTA documented in this encounter Plan of Treatment Upcoming Encounters Date Type Department Care Team (Latest Contact Info) Description 08/19/2024 11:30 AM EDT Treatment [address] [phone] Mark Nieves PTA 08/26/2024 8:30 AM EDT Treatment [address] [address] Rolando Faith, SPEAKING UNIT ASSEMBLER 08/28/2024 1:00 PM EDT Treatment [facility] [address] [address] Rolando Faith, SPEAKING UNIT ASSEMBLER 09/01/2024 1:30 PM EDT Hospital Encounter [facility] Endoscopy [address] [place] [phone] Dean Frank MD [address] [address] 09/07/2024 11:00 AM EDT Treatment [facility] [address] [address] Aby Cifuentes, PT 01/11/2025 10:30 AM EDT Office Visit Adult Medicine [facility] [address] [place] [address] Heriberto Dale MD [address] [place] [address] documented as of this encounter Goals Goal [...] documented as of this encounter Care Teams Applications Coordinator Relationship Specialty Start Date End Date Heriberto Dale MD [address] [place] [id number] PCP - General Internal Medicine 11/25/20 documented as of this encounter
--- OUTSIDE RECORDS SUMMARY | 2024-08-17 14:34 | XMS_ITS | Encounter Summary ---
Author Organization [facility] Address [address] [place] [address] Care Team Providers Care [employer] Mechanical Name Role Phone Heriberto Dale MD Primary Care Provider Encounter Details Date Type Department Care Team (Late st Contact Info) Description 07/13/2024 Telephone Adult Medicine - [place] [address] [phone] Sarina Niño MA Social History Tobacco Use Types Packs/Day Years [...] your loved ones. For example, director child abuse therapy or elderly care for an older adult? [...] as of this encounter Progress Notes * Sarina Niño MA - 07/13/2024 10:22 AM EDT Spoke to patient and patient stated he would like to have a referral placed to [facility] in [place].Patient stated his right shoulders pain is consistent, but depending on the movement depends on shoulders pain level. documented in this encounter Plan of Treatment Upcoming Encounters Date Type Department Care Team (Latest Contact Info) Description 08/19/2024 11:30 AM EDT Treatment [facility] [address] [address] Mark Nieves, DENTAL LAB TECHNICIAN 08/26/2024 8:30 AM EDT Treatment [facility] [address] [phone] Rolando Faith, DENTAL LAB TECHNICIAN 08/28/2024 1:00 PM EDT Treatment [facility] [address] [phone] Rolando Faith, DENTAL LAB TECHNICIAN 09/01/2024 1:30 PM EDT Hospital Encounter [facility] Endoscopy [address] [place] [phone] Dean Frank MD [address] [address] 09/07/2024 11:00 AM EDT Treatment [facility] [address] [phone] Aby Cifuentes, VIRI 01/11/2025 10:30 AM EDT Office Visit Adult Medicine [facility] [address] [place] [phone] Heriberto Dale MD [address] [place] [address] documented as of this encounter Goals Goal Patient Goal Type Associated Problems Recent Progress Patient-Stated? Author LTG - 8 visits General No Aby Cifuentes, PT Note: Patient reports subjective decrease in R shoulder pain Patient is able to resume throwing motion Patient is able to achieve 90 degrees of R shoulder ER Patient is able to achieve 145 degrees of R shoulder abduction Slight pec and biceps flexibility restriction bilaterally Patient is independent and compliant with HEP documented as of this encounter Visit Diagnoses Not on filedocumented in this encounter Additional Health Concerns Assessment Noted Time PHQ-9 Depression Total Score: 0 07/07/19 25 8:37 AM EDT documented as of this encounter Care Teams [employer] Relationship Specialty Start Date End Date Heriberto Dale MD [address] [place] [address] PCP - General Internal Medicine 11/25/20 documented as of this encounter
[2024-08-17 14:52] VITALS: BP 110/60; PULSE 70; BMI 32.7
--- NOTE | 2024-08-17 14:52 | A.OFFVIS_ITS ---
Vital Signs 08/17/24 14:52 Height 5 ft 10 in Weight 227 lb 15.327 oz BMI 32.7 BP 110/60 Blood Pressure Location Lt brachial Position Sitting Pulse 70 Pulse Source Monitor Intake Visit Reasons: 6mth f/up/thyroid labs/ r/s 05/20 Intake Note: 6 mth f/up/Thyroids labs Chiller Technician Required: No Accompanied by: Self / Same As Patient Allergies No Known Allergies Allergy (Verified 03/20/23 14:53) Medication List - Last Reconciled 08/17/24 by Rocky Mckinnon MD aspirin 81 mg PO DAILY atorvastatin 80 mg PO BEDTIME clopidogrel 75 mg PO DAILY metoprolol succinate ER 25 mg PO DAILY sildenafil mg PO valsartan 40 mg PO DAILY HPI Comments Details: 69-shey-old gentleman is here for follow-up. He presented to [facility] with anterior ST-elevation OK in February 2023. Was taken emergently for cardiac catheterization which revealed a 99% proximal LAD stenosis which was treated with drug-eluting stent. He did well after that. Reportedly he had ejection fraction of 30 35%. Was started on valsartan and metoprolol succinate. He is complaining of some fatigue and gets tired easily. He was not very active to start with and has not been exercising regularly since the OK. He is due to start cardiac rehabilitation in April 2023. He is taking aspirin and Plavix without any bleeding issues. Blood pressure is 110/60. On couple of occasions he had dizziness but this is not a common symptom. He said he has not been drinking much because he was advised not to drink a lot of water since his ejection fraction is low. I have advised him to drink water but stay away from salt. 06/26/2023: He returns for follow-up. He has been doing well. No chest pain or shortness of breath. Blood pressure is well controlled. He is tolerating dual antiplatelet therapy. Is asking whether he can take creatine supplements. To my knowledge there is no absolute contraindication to that but I will search about it. His repeat echocardiography has shown normal EF and his cardiomyopathy has improved. 11/13/2023: Aureliano is here for follow-up. No chest pain or shortness of breath. He is saying occasionally he gets very jittery and tremulous. Today he has been tremulous since he ate breakfast. He said he was holding the spoon and it was shaking in his hand. He has some stress because he is trying to sell some tool boxes because his garage is full of tools. Taking medications regularly otherwise. Blood pressure is well controlled. 08/17/2024: Returns for follow-up. No chest discomfort shortness of breath. He has been active and has no exertional issues. He wants to undergo colonoscopy. He is currently taking dual antiplatelet therapy. [facility] Social History Alcohol intake: never Patient Tobacco Use Status: Never used Tobacco Review of Systems Const Denies chills, Denies fatigue, Denies fever(s), Denies frequent falls, Denies weakness, Denies weight gain and Denies weight loss ENT Denies dizziness Card Denies chest pain, Denies leg edema, Denies lightheadedness, Denies palpitations, Denies dyspnea and Denies dyspnea on exertion Resp Denies cough, Denies dyspnea and Denies dyspnea on exertion GI Denies hematochezia Musc Denies abnormal gait, Denies muscle weakness, Denies numbness, Denies radiating pain into limb and Denies tingling Neuro Denies abnormal gait, Denies dizziness, Denies frequent falls, Denies numbness, Denies tingling and Denies weakness Endo Denies fatigue and Denies palpitations Physical Exam Vital Signs: Last Vital Signs Pulse 70 08/17/24 14:52 BP 110/60 08/17/24 14:52 BMI result Body Mass Index 32.7 GENERAL APPEARANCE: in no acute distress, pleasant. NECK: no carotid bruit, no jugular venous distention. SKIN: no suspicious lesions, warm and dry. HEART: no murmurs, regular rate and rhythm. LUNGS: clear to auscultation bilaterally. ABDOMEN: soft, nontender. EXTREMITIES: no edema. Tremors in hands. PERIPHERAL PULSES: equal. NEUROLOGIC: No gross deficits, AAO X 3 Office Procedures EKG Details: Sinus rhythm 70 beats per minute, normal ECG, QTC 423 milliseconds. [id number], Complete Assessment & Plan Assessment & Plan (1) Stable angina: Code(s): I20.89 - Other forms of angina pectoris Category: Medical (2) Preop cardiovascular exam: Code(s): Z01.810 - Encounter for preprocedural cardiovascular examination Category: Medical Plan 69 year gentleman who is here for follow-up. He has known history of coronary disease with previous LAD PCI in 2022. He has been on aspirin and Plavix. He wishes to undergo colonoscopy. He is intermediate risk for perioperative complications. I have advised him to stop the Plavix and just take aspirin monotherapy from here onwards. Ideally should not stop aspirin during the colonoscopy and should have the procedure done while he is actively using the aspirin. Clinically stable and will see us back in 4 months. Thank you for allowing me to participate in the care of your patient. Please feel free to contact me if you have any questions. Coding Level of Care Code Est Pt Level 4 (74403) Diagnoses Stable angina I20.89 Preop cardiovascular exam Z01.810 CPT Codes EKG - CPT: 12425-Elksqzxzeyuhrfvzs, Complete ([id number])
== END 2024-08-17 15:32 | disposition home or self-care (01) ==
LOC: HO.HCS 14:21
PROVIDERS: PCP Pediatrics; Visit Provider Internal Medicine Cardiovascular Disease
DX: I20.89 Other forms of angina pectoris (principal); Z01.810 Encounter for preprocedural cardiovascular examination
CPT/HCPCS: 93010; 99214

== ENCOUNTER → 2024-08-17 14:21 | Outpatient (BNVA) | payer MEDICARE, SELFPAY | PROVIDERS: PCP Pediatrics; Visit Provider Internal Medicine Cardiovascular Disease | DX: Z01.810 Encounter for preprocedural cardiovascular examination (principal); I20.89 Other forms of angina pectoris | CPT/HCPCS: 93005; 99212 ==

== ENCOUNTER 2024-12-22 08:04 | Outpatient (AMB) | payer MEDICARE, SELFPAY ==
--- NOTE | 2024-12-22 08:15 | MHC.OFFVIS ---
Vital Signs 12/22/24 08:16 Height 5 ft 10 in Weight 224 lb 13.944 oz BMI 32.3 BP 100/62 Blood Pressure Location Rt brachial Position Sitting Pulse 57 Pulse Source Pulse Oximeter Intake Visit Reasons: [address] martel Editor Producer Required: No Allergies No Known Allergies Allergy (Verified 12/22/24 08:18) Medication List - Last Reconciled 12/22/24 by Gaby Prasad, ROSY-C aspirin 81 mg PO DAILY atorvastatin 80 mg PO BEDTIME metoprolol succinate ER 25 mg PO DAILY sildenafil mg PO valsartan 40 mg PO DAILY HPI HPI [address] martel: Details: Aureliano is a 69-year-old male with past medical history of anterior STEMI 02/2023 with catheterization showing 99% proximal LAD stenosis, DANA placed. He initially had reduced EF 30-35% which then normalized on follow-up echo. Today he reports that he had been feeling well with no cardiac concerns. He denies chest discomfort at rest or with activity. He has no shortness of breath, PND, orthopnea or edema. No lightheadedness, palpitations, presyncope, syncope, falls. He does experience muscle cramps at times which is not new or overly bothersome. He exercises routinely by lifting weights and walking routinely. His labs are followed by his PCP. He is taking all his meds as directed. 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 [facility] Medical History (Updated 12/22/24 @ 11:34 by Gaby Prasad, ROSY-C) STEMI (ST elevation myocardial infarction) CAD (coronary artery disease) Surgical History (Updated 12/22/24 @ 11:40 by Gaby Prasad NP-C) Stented coronary artery Social History Alcohol intake: never Patient Tobacco Use Status: Never used Tobacco Review of Systems Const All systems reviewed & are unremarkable except as noted in HPI and below ENT Denies dizziness Card Denies chest pain, Denies chest pain at rest, Denies chest pain with activity, Denies rapid heart rate, Denies pedal edema, Denies edema, Denies leg edema, Denies lightheadedness, Denies palpitations, Denies dyspnea, Denies dyspnea on exertion and Denies orthopnea Resp Denies cough, Denies dyspnea and Denies dyspnea on exertion GI Denies hematochezia and Denies change in stool character Musc Denies abnormal gait, Denies limited range of motion, Reports muscle cramps, Denies muscle weakness, Denies numbness, Denies radiating pain into limb, Denies stiffness and Denies tingling Neuro Denies abnormal gait, Denies dizziness, Denies numbness and Denies tingling Endo Denies palpitations Physical Exam Vital Signs: Last Vital Signs Pulse 57 12/22/24 08:16 BP 100/62 12/22/24 08:16 BMI result Body Mass Index 32.3 Const General: cooperative, healthy appearing, comfortable and no acute distress Orientation/consciousness: patient oriented x3 Neck Neck: Yes normal visual inspection Resp Effort & Inspection: normal respiratory effort Auscultation: clear to auscultation bilaterally, no crackles, no rales, no rhonchi and no wheezes Cardio Rate: regular rate Rhythm: regular rhythm Heart sounds: S1 normal heart sound present, S2 normal heart sound present, no gallops, no murmurs and no rubs Neuro General: patient oriented x3 Extrem General: Yes normal to inspection and No no pedal edema Psych Appearance: grossly normal Mental Status: mental status grossly normal Speech and movement: Normal speech and movement present Assessment & Plan Assessment & Plan (1) STEMI (ST elevation myocardial infarction): Code(s): I21.3 - ST elevation (STEMI) myocardial infarction of unspecified site Category: Medical Plan: Anterior STEMI 02/2023. Cardiac catheterization showed proximal LAD 99% stenosis and DANA was placed. Initial echo showed EF 30-35%. Repeat echo done 04/23/2023 showed EF 55-60%, no mention of regional wall motion abnormality. He currently has no anginal symptoms. Continue aspirin indefinitely. Continue high-dose atorvastatin with ideal LDL goal less than 70. Continue metoprolol and valsartan for good heart rate and blood pressure control. Continue exercise as tolerated. Signs and symptoms of angina reviewed. Cardiology follow-up 6 months, sooner if needed. (2) CAD (coronary artery disease): Code(s): I25.10 - Atherosclerotic heart disease of beaver coronary artery without angina pectoris Category: Medical Plan: Single-vessel coronary artery disease as seen on cardiac catheterization at time of STEMI. Med management as above. (3) S/P cardiac cath: Comment: 03/01/2023, left main, left circumflex, RCA all normal, proximal LAD 99% stenosis, DANA placed Code(s): Z98.890 - Other specified postprocedural states Category: Surgical (4) Stented coronary artery: Comment: Proximal LAD stent 03/01/2023 Code(s): Z95.5 - Presence of coronary angioplasty implant and graft Category: Surgical (5) Hyperlipemia: Code(s): E78.5 - Hyperlipidemia, unspecified Category: Medical Plan: [place] LDL goal less than 70. Labs followed by PCP. Will try to obtain most recent results. Continue atorvastatin. Plan We reviewed his cardiac history, noting the normal echocardiogram findings post-myocardial infarction, and emphasized the continuation of his current medication regimen. During the visit, we discussed his the patient's muscle cramps, which may be related to atorvastatin use, and the importance of maintaining physical activity. He was informed to let us know if this symptom is increasing. The patient was advised to manage his weight through increased cardio activity and dietary adjustments. Patient Instructions: - Monitor muscle cramps and report any changes. - Maintain physical activity, including cardio exercises. - Maintain good hydration. - Follow current medication regimen as prescribed. - Manage weight through diet and exercise. Patient was informed and verbally consented to the use of an ambient scribe for clinic note documentation during this visit. Visit time spent on chart review, interview, assessment, orders, documentation. Coding Level of Care Code Est Pt Level 4 (81737) Complex EM visit Add On G2211 Diagnoses STEMI (ST elevation myocardial infarction) I21.3 CAD (coronary artery disease) I25.10 S/P cardiac cath Z98.890 Stented coronary artery Z95.5 Hyperlipemia E78.5 Time Spent (min) 32
[2024-12-22 08:16] VITALS: BP 100/62; PULSE 57; BMI 32.3
--- OUTSIDE RECORDS SUMMARY | 2024-12-22 08:56 | XMS_ITS | Clinical Summary ---
Author Organization [facility] [address] [facility] lding Address [address] [place] [address] Phone Care Team Providers Care Field Sales Consultant Name Role Phone Heriberto Dale MD Primary Care Provider [phone] Allergies No known active allergies Medications sildenafiL (VIAGRA) 50 mg tablet TAKE 1/2 (HALF) TABLET BY MOUTH EVERY DAY NEEDED FOR ERECTILE DYSFUNCTION 4 tablet 2 5 Active metoprolol succinate (TOPROL-XL) 25 mg 24 hr tablet Take 1 tablet (25 mg total) by mouth 1 (one) time each day. Do not crush or chew. 30 each 2 5 Active bisacodyL (DULCOLAX) 5 mg EC tablet [...] before your procedure. 4000 mL 5 Active creatine, bulk, 100 % powder Active whey protein isolate, bulk, 100 % powder Active valsartan (DIOVAN) 40 mg tablet TAKE 1 TABLET BY MOUTH EVERY DAY 90 tablet 5 Active atorvastatin (LIPITOR) 80 mg tablet TAKE 1 TABLET BY MOUTH EVERY DAY AT BEDTIME 90 tablet 5 Active traZODone (DESYREL) 50 mg tablet TAKE 1 TABLET BY MOUTH AT BEDTIME 30 tablet 2 5 Active Active Problems Problem Noted Date Diagnosed Date Chronic right shoulder pain 07/09/2024 Colon cancer screening 06/17/2024 STEMI (ST elevation myocardi al infarction) ([facility] V24, [facility] V28) 04/16/2023 Overview (03/18/2024): 02/28. DANA LAD. EF 30-40% Overweight (BMI 25.0-29.9) 11/28/2021 Hypercholesteremia 05/05/2020 Overview (03/18/2024): 08/26 - 10.6% Diastasis recti 01/19/2020 Fatty liver 01/02/2014 Urolithiasis 12/26/2012 Overview (03/18/2024): Calcium oxalate, ureteral stone, Dr Geronimo Erectile dysfunction 05/08/2012 Immunizations Name Administration Dates Next Due Influenza [...] COMMENT: Dr Champ Rao COLONOSCOPY 2012 PROCEDURE: PA COLONOSCOPY FLX DX W/COLLJ SPEC WHEN PFRMD; COMMENT: normal KNEE ARTHROSCOPY W/ DEBRIDEMENT 10/1999 PROCEDURE: PA ARTHRS KNEE DEBRIDEMENT/SHAVING ARTCLR CRTLG OTHER SURGICAL HISTORY 10/2012 PROCEDURE: PA INSTLJ THER AGENT RENAL PELVIS&/URETER VIA TUB; COMMENT: right ureteral nephrostomy, Dr Perdomo Medical History Medical History Date Comments Epididymal cyst 05/2003 DX:Epididymal cy st; COMMENT: [facility]rology Fatty liver 01/02/2014 DX:Fatty liver Hyperlipidemia 05/05/2020 DX:Hyperlipidemi a Covid 05/09/2023 DX:COVID STEMI (ST elevation myocardi al infarction) (CMS/HCC V24, CMS/HCC V28) Diastasis recti Fatty liver Urolithiasis Erectile dysfunction Family History Medical History Relation Name Comments [...] your loved ones. For example, child care associate teacher or elderly care for an older adult? [...] What is your living situation? 0 07/06/2024 Interpersonal Safety Answer Date Record ed Physical Abuse 09/01/2024 Verbal Abuse 09/01/2024 Sex and Gender Information Value Date Recorded Sex Assigned at Not on file Legal Sex Male 5:28 AM EST Gender Identity Not on file Sexual Orientation Not on file Obstetrics History Last Filed Vital Signs Vital Sign Reading Time Taken Comments Blood Pressure 140/78 09/01/2024 2:26 PM EDT Pulse 65 09/01/2024 2:26 PM EDT Temperature 36.8 C (98.3 F) 09/01/2024 2:26 PM EDT Respiratory Rate 18 09/01/2024 2:26 PM EDT Oxygen Saturation 98% 09/01/2024 2:26 PM EDT Inhaled Oxygen Concentration - - Weight 99.8 kg (220 lb) 08/24/2024 10:00 AM EDT Height 177.8 cm (5' 10 ) 08/24/2024 10:00 AM EDT Body Mass Index 31.57 08/24/2024 10:00 AM EDT Plan of Treatment Upcoming Encounters Date Type Department Care Team (Late st Contact Info) Description 01/11/2025 10:30 AM EDT Office Visit Adult Medicine [facility] [address] [place] [address] Heriberto Dale MD [address] [place] [address] Health Maintenance Due Date Last Done Comments Zoster Vaccines (1 of 2) 01/09/2006 Abdominal Aortic Aneurysm (AAA) Screen 03/17/2022 COVID-19 Vaccine (2024-2 6 season) 2024 05/11/2021, 08/02/2020, 06/30/2020 Influenza Vaccine (#1) 2024 , 2023, 01/19/2020 Medicare Annual Wellness Visit 01/08/2025 01/09/2024 Social Influencers of Health Screening 07/06/2025 07/06/2024 Falls Risk Assessment 09/01/2025 09/01/2024 , 01/09/2024 Cholesterol Screening (Lipid Panel) 01/08/2029 01/09/2024, 01/09/2024 RSV Immunization Adult Patients (1 - 1-dose 75+ series) 01/09/2031 DTaP,Tdap,and Td Vaccines (3 - Td or Tdap) 07/26/2032 07/26/2022, 05/08/2012 Colorectal Cancer Screening: Colonoscopy 09/01/2034 09/01/2024, 09/11/2012 Hepatitis C Screening Completed 09/29/2018 Pneumococcal Vaccine: 50+ Years Completed 01/09/2024, 11/28/2021 Depression Screening Completed 07/06/2024, 01/09/2024 HIB Vaccines Aged Out No longer eligi [...] on patient's age to complete this topic Procedures Procedure Name Priority Date/Time Associated Diagnosis Comments COLONOSCOPY Routine 09/01/2024 2:05 PM EDT Colon cancer screening DEPRESSION SCREENING Routine 01/09/2024 FALLS RISK ASSESSMENT Routine 01/09/2024 LIPID PANEL Routine 01/09/2024 HEPATITIS C SCREENING Routine 09/29/2018 from Last 3 Months or Most Recently Relevant to Health Maintenance Results * COLONOSCOPY Anesthesia - MAC; [facility] ENDOSCOPY (09/01/2024 2:05 PM EDT) Anatomical Region Laterality Modality Endoscopy 09/01/2024 1:41 PM EDT Impressions 09/01/2024 2:06 PM EDT - Diverticulosis in the sigmoid colon. - The examination was otherwise normal on direct and retroflexion views. - No specimens collected. Recommendation: - Repeat colonoscopy in 10 years for screening purposes. Narrative 09/01/2024 2:06 PM EDT [facility] Patient Name: Mark Chauhan Procedure Date: 09/01/2024 1:41 PM Date of : 1955 Age: 69 Room: ROOM 15 Gender: Male Note Status: Finalized Attending MD: Dean Frank MD, Procedure Date No Time: 09/01/2024 Procedure: Colonoscopy Indications: Screening for colorectal malignant neoplasm Providers: Dean Frank MD Referring MD: Dean Frank MD Medicines: Propofol per Anesthesia Complications: No immediate complications. Estimated Blood Loss: Estimated blood loss: none. Procedure: Pre-Anesthesia Assessment: - ASA Grade Assessment: II - A patient with mild systemic disease. After I obtained informed consent, the scope was passed under direct vision. Throughout the procedure, the patient's blood pressure, pulse, and oxygen saturations were monitored continuously.The Olympus Colonoscope was introduced through the anus and advanced to the cecum, identified by appendiceal orifice and ileocecal valve. The colonoscopy was performed without difficulty. The patient tolerated the procedure well. The quality of the bowel preparation was good. Findings: The perianal and digital rectal examinations were normal. Multiple diverticula were found in the sigmoid colon. The exam was otherwise without abnormality on direct and retroflexion views. Procedure Code(s): --- Professional --- G0121, Colorectal cancer screening; colonoscopy on individual not meeting criteria for high risk Diagnosis Code(s): --- Professional --- Z12.11, Encounter for screening for malignant neoplasm of colon K57.30, Diverticulosis of large intestine without perforation or abscess without bleeding CPT copyright 2020 [employer]. All rights reserved. The codes documented in this report are preliminary and upon enterprise application architect review may be revised to meet current compliance requirements. Dean Frank MD 09/01/2024 2:06:29 PM This report has been signed electronically.Dean Frank MD Number of Addenda: 0 Note Initiated On: 09/01/2024 1:41 PM Scope In: Scope Out: Endoscopy Department at [facility] - [address] [place] [id number] Procedure Note Dean Frakn MD - 09/01/2024 [facility] GI Patient Name: Mark Chauhan Procedure Date: 09/01/2024 1:41 PM Date of : 1955 Age: 69 Room: ROOM 15 Gender: Male Note Status: Finalized Attending MD: Dean Frank MD, Procedure Date No Time: 09/01/2024 Procedure: Colonoscopy Indications: Screening for colorectal malignant neoplasm Providers: Dean Frank MD Referring MD: Dean Frank MD Medicines: Propofol per Anesthesia Complications: No immediate complications. Estimated Blood Loss: Estimated blood loss: none. Procedure: Pre-Anesthesia Assessment: - ASA Grade Assessment: II - A patient with mild systemic disease. After I obtained informed consent, the scope was passed under direct vision. Throughout theprocedure, the patient's blood pressure, pulse, and oxygen saturations were monitored continuously.The Olympus Colonoscope was introduced through the anus and advanced to the cecum, identified by appendiceal orifice and ileocecal valve. The colonoscopy was performed without difficulty. The patient tolerated the procedure well. The quality of the bowel preparation was good. Findings: The perianal and digital rectal examinations were normal. Multiple diverticula were found in the sigmoidcolon. The exam was otherwise without abnormality ondirect and retroflexion views. Procedure Code(s): --- Professional --- G0121, Colorectal cancer screening; colonoscopy on individual not meeting criteria for high risk Diagnosis Code(s): --- Professional --- Z12.11, Encounter for screening for malignantneoplasm of colon K57.30, Diverticulosis of large intestine without perforation or abscess without bleeding CPT copyright 2020 [employer]. All rights reserved. The codes documented in this report are preliminary and upon enterprise application architect reviewmay be revised to meet current compliance requirements. Dean Frank MD 09/01/2024 2:06:29 PM This report has been signed electronically.Dean Frank MD Number of Addenda: 0 Note Initiated On: 09/01/2024 1:41 PM Scope In: Scope Out: Endoscopy Department at [facility] - [address] [place] [id number] IMPRESSION: - Diverticulosis in the sigmoid colon. - The examination was otherwise normal on directand retroflexion views. - No specimens collected. Recommendation: - Repeat colonoscopy in 10 years for screening purposes. Dean Frank MD GI~PROCEDURE ORDERABLES Fin al Result * Falls Risk Assessment (01/09/2024) Falls Risk Assessment Abstracted Historical Provider HEALTH MAINTENANCE Final Result * Depression Screening (01/09/2024) Depression Screening Abstracted Historical Provider HEALTH MAINTENANCE Final Result * (ABNORMAL) Lipid panel (01/09/2024) Pathologist [facility] LDL/HDL Ratio 3 0 - 4 Triglycerides 181(A) 0 - 150 mg/dL Cholesterol 127 0 - 200 mg/dL HDL 44 >=40 mg/dL LDL Cholesterol 47 0 - 100 mg/dL Blood Venous blood specimen / Unknown Historical Provider LAB BLOOD ORDERABLES Indira l Result * Hepatitis C Screening (09/29/2018) Pathologist [facility] Hepatitis C Screening Abstracted [facility] Provider HEALTH MAINTENANCE Final Result from Last 3 Months or Most Recently Relevant to Health Maintenance Insurance [employer] - [place] Advance Directives Documents on File Type Date Recorded Patient Electronic Test Technician Expl anation Power of Vendor Management Specialist 09/01/2024 12:22 PM Denise Hines [facility] Healthcare Agents on File Name Relationship Healthcare Agent Relationshi p Communication Denise Hines Partner Health Care Agent Care Teams Field Sales Consultant Relationship Specialty Start Date End Date Heriberto Dale MD [address] [place] [address] PCP - General Internal Medicine 11/25/20
--- OUTSIDE RECORDS SUMMARY | 2024-12-22 08:56 | XMS_ITS ---
Author Name [facility] Organization Unknown Care Team Organization Name Specialty Phone Email Start Date End Da te [facility] 10/11/2022 11/25/2023 [facility] 09/14/2022 11/25/2023 [facility] Jeanette Torres Primary Care 08/13/2022 024 [facility] [place] [facility] 02/13/2022 11/25/2023
== END 2024-12-22 08:42 | disposition home or self-care (01) ==
LOC: HO.HCS 08:04
PROVIDERS: PCP Pediatrics; Visit Provider Nurse Practitioner Family
DX: I21.3 ST elevation (STEMI) myocardial infarction of unspecified site (principal); I25.10 Atherosclerotic heart disease of native coronary artery without angina pectoris; Z98.890 Other specified postprocedural states; Z95.5 Presence of coronary angioplasty implant and graft; E78.5 Hyperlipidemia, unspecified
CPT/HCPCS: 99214; G2211

== ENCOUNTER → 2024-12-22 08:04 | Outpatient (BNVA) | payer MEDICARE, SELFPAY | PROVIDERS: PCP Pediatrics; Visit Provider Nurse Practitioner Family | DX: I25.10 Atherosclerotic heart disease of native coronary artery without angina pectoris (principal); Z95.5 Presence of coronary angioplasty implant and graft; I21.3 ST elevation (STEMI) myocardial infarction of unspecified site; E78.5 Hyperlipidemia, unspecified | CPT/HCPCS: 99212 ==